=== PATIENT | female | born 1960 | race Hispanic/Latino ===

== ENCOUNTER 2018-10-31 06:54 | Observation (INO) | payer BC, OTHER ==
--- NOTE | 2018-10-31 07:52 | ED PDOC ---
Arrival/HPI - General Chief Complaint: Weakness/Neurological Deficit Historian: Patient - History of Present Illness Narrative History of Present Illness (Text): 10/31/18 07:49 58 year old female, whose past medical history includes hypertension, Hyperlip idemia, hx of TIA 12/18/11, Crohns, DVT after an ankle sx in 2006, presents to the emergency department complaining of right-sided weakness and numbness that began 2-3 days ago. Patient reports she noticed it when she was trying to brush her teeth. Patient reports right-sided facial droop 2 days go and slurred speech yesterday. Patient takes 325mg Aspirin daily, but did not take her daily dose today. Patient denies being on any blood thinners. Patient denies any fever, chills, chest pain, shortness of breath, nausea, vomiting, diarrhea, urinary symptoms, back pain, neck pain, headache, dizziness, or any other complaints. PMD: Dr. Maxwell Time/Duration: Other (2-3 days) Symptom Onset: Gradual Symptom Course: Unchanged Activities at Onset: Light Context: Home Past Medical History - Provider Review Nursing Documentation Reviewed: Yes - Past History Past History: Non-Contributing - Infectious Disease Hx of Infectious Diseases: None - Tetanus Immunization Tetanus Immunization: Unknown - Cardiac Hx Cardiac Disorders: Yes Hx Hypertension: Yes - Pulmonary Hx Chronic Obstructive Pulmonary Disease (COPD): No - Neurological HX Cerebrovascular Accident: No - HEENT Hx HEENT Disorder: No - Renal Hx Renal Disorder: No - Endocrine/Metabolic Hx Endocrine Disorders: No - Hematological/Oncological Hx Blood Disorders: Yes Hx Cancer: No Other/Comment: DVT 2006 POST OP - Integumentary Hx Dermatological Disorder: No - Musculoskeletal/Rheumatological Hx Arthritis: Yes - Gastrointestinal Hx Gastrointestinal Disorders: No Hx Crohn's Disease: Yes Hx Gastroesophageal Reflux: No - Genitourinary/Gynecological Hx Genitourinary Disorders: No - Psychiatric Hx Emotional Abuse: No Hx Physical Abuse: No Hx Substance Use: No - Past Surgical History Past Surgical History: Non-Contributing - Surgical History Other/Comment: EXC PAROTID GLAND MASSLEFT KNEE ACL RECONSTRUCTION 2012RT ANKLE SX 2010 - Anesthesia Hx Anesthesia: Yes Hx Anesthesia Reactions: Yes (NAUSEA) Hx Malignant Hyperthermia: No - Suicidal Assessment Feels Threatened In Home Enviroment: No Family/Social History - Physician Review Nursing Documentation Reviewed: Yes Family/Social History: No Known Family HX Smoking Status: Never Smoked Hx Alcohol Use: No Hx Substance Use: No Hx Substance Use Treatment: No Allergies/Home Meds Allergies/Adverse Reactions: Allergies fexofenadine Allergy (Verified 10/31/18 11:51) ANGIOEDEMA pseudoephedrine Allergy (Verified 10/31/18 11:51) ANGIOEDEMA Tetanus Vaccines and Toxoid Adverse Reaction (Verified 10/31/18 11:51) REDNESS Home Medications: Home Meds Medication Instructions Recorded Confirmed Aspirin 325 mg PO DAILY 10/31/18 10/31/18 Flaxseed Oil [Flaxseed] 1,300 mg PO DAILY 10/31/18 10/31/18 Multivit-Min/FA/Lycopen/Lutein 1 tab PO DAILY 10/31/18 10/31/18 [Adults 50 Plus Multivitamin] Ubidecarenone [Coq10] 50 mg PO DAILY 10/31/18 10/31/18 Review of Systems - Physician Review All systems were reviewed & negative as marked: Yes - Review of Systems Constitutional: absent: Fevers, Other (chills) Respiratory: absent: SOB Cardiovascular: absent: Chest Pain Gastrointestinal: absent: Diarrhea, Nausea, Vomiting Genitourinary Female: absent: Dysuria, Frequency, Hematuria Musculoskeletal: absent: Back Pain, Neck Pain Neurological: Speech Changes (slurred speech yesterday ), Facial Droop (right- sided 2 days ago), Other (right-side weakness and numbness). absent: Headache, Dizziness Physical Exam Vital Signs Reviewed: Yes Vital Signs Temp Pulse Resp BP Pulse Ox 10/31/18 07:01 97.4 F L 95 H 18 160/97 H 94 L Temperature: Afebrile Blood Pressure: Hypertensive Pulse: Regular Respiratory Rate: Normal Appearance: Positive for: Well-Appearing, Non-Toxic, Comfortable Pain Distress: None Mental Status: Positive for: Alert and Oriented X 3 - Systems Exam Head: Present: Atraumatic, Normocephalic Pupils: Present: PERRL Extroacular Muscles: Present: EOMI Conjunctiva: Present: Normal Mouth: Present: Moist Mucous Membranes Neck: Present: Normal Range of Motion Respiratory/Chest: Present: Clear to Auscultation, Good Air Exchange. No: Respiratory Distress, Accessory Muscle Use Cardiovascular: Present: Regular Rate and Rhythm, Normal S1, S2. No: Murmurs Abdomen: No: Tenderness, Distention, Peritoneal Signs Back: Present: Normal Inspection Upper Extremity: Present: Normal Inspection. No: Cyanosis, Edema Lower Extremity: Present: Normal Inspection. No: Edema Neurological: Present: Speech Normal, Other (decrease sensation to the right lower and upper extremities, right arm drift> 10 sec, right-sided facial droop) Skin: Present: Warm, Dry, Normal Color. No: Rashes Psychiatric: Present: Alert, Oriented x 3, Normal Insight, Normal Concentration Medical Decision Making ED Course and Treatment: 10/31/18 07:49 Impression: 58 year old female presents complaining of right-sided weakness that began 2-3 days ago with at times slurred speech and facial droops. Plan: -- CT head and neck bundle -- Head CT -- EKG -- Labs -- Urine Culture -- Chest X-ray -- Urinalysis w/ micro -- Reassess and disposition Prior Visits: Notes and results from previous visits were reviewed. Progress Notes: EKG shows NSR at 95 BPM. Interpreted by me. PROCEDURE: CT Angiography of the neck with contrast Dictator : Ashutosh Lisa MD Report Date : 10/31/2018 09:09:04 IMPRESSION: Unremarkable CT Angiography of the Brain. PROCEDURE: CT HEAD WITHOUT CONTRAST. Dictator : Wendy Dotson MD Report Date : 10/31/2018 08:54:33 IMPRESSION: No acute intracranial abnormality.If there is a persistent focal neurologic deficit and an ongoing clinical concern for acute infarction, an MRI of the brain without intravenous contrast would be a more sensitive modality for evaluation of hyperacute/acute ischemic infarction. Chronic lacunar infarction in the right anterior limb of internal capsule, left basal ganglia, thalamus and genu of internal capsule. Mild chronic microangiopathic changes. Chest X-ray Dictator : Ashutosh Lisa MD Report Date : 10/31/2018 08:58:08 IMPRESSION: No active disease. 10/31/18 09:[address] Maxwell who is aware and agrees with the plan. Accepts patient into her service and request Dr. Wolfe for neuro consult. - Lab Interpretations I have reviewed the lab results: Yes - RAD Interpretation Radiology Orders: 10/31/18 07:17 CTA HEAD & NECK BUNDLE [CT] Stat HEAD W/O CONTRAST [CT] Stat CHEST PORTABLE [RAD] Stat Drink Waiter: Radiologist - EKG Interpretation Interpreted by ED Physician: Yes Type: 12 lead EKG - Scribe Statement The provider has reviewed the documentation as recorded by the Gwen Nation Provider Gwen Attestation: All medical record entries made by the Gwen were at my direction and personally dictated by me. I have reviewed the chart and agree that the record accurately reflects my personal performance of the history, physical exam, medical decision making, and the department course for this patient. I have also personally directed, reviewed, and agree with the discharge instructions and d isposition. Disposition/Present on Arrival - Present on Arrival Any Indicators Present on Arrival: No History of DVT/PE: Yes History of Uncontrolled Diabetes: No Urinary Catheter: No History of Decub. Ulcer: No History Surgical Site Infection Following: None - Disposition Have Diagnosis and Disposition been Completed?: Yes Diagnosis: Weakness Disposition: HOSPITALIZED Disposition Time: 09:15 Condition: GUARDED
[2018-10-31 07:56] LABS: BASO # 0.09 K/mm3 (0.0-2.0); BASO % 0.8 % (0.0-3.0); EOS # 0.5 (0.0-0.7); EOS % 4.7 % (1.5-5.0); HEMOGLOBIN 14.3 g/dL (12.0-16.0); LYMPH # 2.4 (1.2-3.4); LYMPH % 21.5 % (22.0-35.0); MEAN CELL VOLUME 89.6 fl (80.0-105.0); MEAN CORPUSCULAR HEMOGLOBIN 29.7 pg (25.0-35.0); MEAN CORPUSCULAR HGB CONC 33.2 g/dl (31.0-37.0); MEAN PLATELET VOLUME 10.2 fl (7.0-11.0); MONO # 0.6 (0.1-0.6); MONO % 5.6 % (1.0-6.0); RBC 4.81 10^6/uL (3.5-6.1); RED CELL DISTRIBUTION WIDTH 13.3 % (11.5-14.5); WHITE BLOOD COUNT 11.2 10^3/uL (4.5-11.0)
[2018-10-31 08:03] LABS: INR 1.04; PARTIAL THROMBOPLASTIN TIME 31.1 Seconds (26.9-38.3); PROTHROMBIN TIME 11.7 SECONDS (9.4-12.5)
[2018-10-31 08:09] LABS: ALB/GLOB RATIO 1.1 (1.1-1.8); ALBUMIN 4.1 g/dL (3.0-4.8); ALT/SGPT 31 U/L (7-56); AST/SGOT 36 U/L (14-36); BLOOD UREA NITROGEN 23 mg/dL (7-21); CALCIUM 9.4 mg/dL (8.4-10.5); GFR NON-AFRICAN AMERICAN 57
[2018-10-31 08:20] LABS: B-TYPE NATRIURETIC PEPTIDE 33.8 pg/mL (0-450); TROPONIN I < 0.01 ng/mL
[2018-10-31 08:25] LABS: URINE APPEARANCE CLEAR (CLEAR); URINE BILIRUBIN NEGATIVE (NEGATIVE); URINE BLOOD NEGATIVE (NEGATIVE); URINE COLOR YELLOW (YELLOW); URINE GLUCOSE (UA) NEGATIVE (NEGATIVE); URINE LEUKOCYTE ESTERASE TRACE Leu/uL (NEGATIVE); URINE PROTEIN NEGATIVE mg/dL (<30 mg/dL); URINE UROBILINOGEN 0.2 E.U./dL (<1 E.U./dL)
[2018-10-31] MEDS ORDERED: Iohexol 350 MG/100 ML VIAL ONE (08:30)
[2018-10-31 08:57] LABS: URINE RBC 0 - 2 /hpf (0-2)
[2018-10-31 08:58] LABS: URINE BACTERIA MANY /hpf
--- NOTE | 2018-10-31 08:58 | CT ---
Date of service: 10/31/2018 PROCEDURE: CT HEAD WITHOUT CONTRAST. HISTORY: right arm numbness/slurred speech for 2-3 days COMPARISON: None available. TECHNIQUE: Axial computed tomography images were obtained through the head/brain without intravenous contrast. Radiation dose: Total exam DLP = 803.23 mGy-cm. This CT exam was performed using one or more of the following dose reduction techniques: Automated exposure control, adjustment of the mA and/or kV according to patient size, and/or use of iterative reconstruction technique. FINDINGS: HEMORRHAGE: No intracranial hemorrhage. BRAIN: There are mild chronic microangiopathic changes. There are chronic lacunar infarctions in the right anterior limb of internal capsule, left basal ganglia, thalamus and genu internal capsule. There is no mass, mass effect or abnormal extra-axial fluid collection. There is no territorial infarction. The midline sagittal structures are normal. VENTRICLES: The ventricles are normal in size, shape and configuration. CALVARIUM: There is no calvarial fracture or extracranial soft tissue swelling. PARANASAL SINUSES: Predominantly clear. MASTOID AIR CELLS: Predominantly clear. OTHER FINDINGS: None. IMPRESSION: No acute intracranial abnormality.If there is a persistent focal neurologic deficit and an ongoing clinical concern for acute infarction, an MRI of the brain without intravenous contrast would be a more sensitive modality for evaluation of hyperacute/acute ischemic infarction. Chronic lacunar infarction in the right anterior limb of internal capsule, left basal ganglia, thalamus and genu of internal capsule. Mild chronic microangiopathic changes.
--- NOTE | 2018-10-31 09:01 | RAD ---
Date of service: 10/31/2018 HISTORY: r/o infiltrate COMPARISON: 08/02/2012 TECHNIQUE: 1 view obtained. FINDINGS: LUNGS: No active pulmonary disease. PLEURA: No significant pleural effusion identified, no pneumothorax apparent. CARDIOVASCULAR: No aortic atherosclerotic calcification present. Normal cardiac size. No pulmonary vascular congestion. OSSEOUS STRUCTURES: No significant abnormalities. VISUALIZED UPPER ABDOMEN: Normal. OTHER FINDINGS: None. IMPRESSION: No active disease.
--- NOTE | 2018-10-31 09:12 | CT ---
Date of service: 10/31/2018 PROCEDURE: CT Angiography of the neck with contrast HISTORY: right arm numbness/slurred speech for 2-3 days COMPARISON: None. TECHNIQUE: Contiguous axial images of the neck were obtained from the level of the skull-base to the superior mediastinum in the arteriographic phase of enhancement. Coronal and sagittal reformats or also generated. IV contrast dose: Radiation dose: Total exam DLP = 498.76 mGy-cm. This CT exam was performed using one or more of the following dose reduction techniques: Automated exposure control, adjustment of the mA and/or kV according to patient size, and/or use of iterative reconstruction technique. FINDINGS: RIGHT CAROTID ARTERIES: Common Carotid Artery: Normal. Carotid Bifurcation: Normal. Internal Carotid Artery:Normal. External Carotid Artery (proximal branches): Normal. LEFT CAROTID ARTERIES: Common Carotid Artery: Normal. Carotid Bifurcation: Normal. Internal Carotid Artery:Normal. External Carotid Artery (proximal branches): Normal. VERTEBRAL ARTERIES: Right Vertebral Artery: Normal. Left Vertebral Artery: Normal. OTHER FINDINGS: no aortic atherosclerotic calcification or mural plaque present. IMPRESSION: Normal CT Angiography of the neck. CT Angiography of the Brain. HISTORY: right arm numbness/slurred speech for 2-3 days COMPARISON: None available. TECHNIQUE: CT angiography of the intracranial arteries was performed. Coronal and sagittal maximum intensity projection reformated images were generated. Radiation dose: Total exam DLP = 498.76 mGy-cm. This CT exam was performed using one or more of the following dose reduction techniques: Automated exposure control, adjustment of the mA and/or kV according to patient size, and/or use of iterative reconstruction technique. FINDINGS: INTERNAL CEREBRAL ARTERIES: Unremarkable. The skull base, petrous, cavernous and supraclinoid segments are bilaterally widely patent. ANTERIOR CEREBRAL ARTERIES: Unremarkable. A1 and A2 segments are widely patent. Smaller distal branches unremarkable, as visualized. MIDDLE CEREBRAL ARTERIES: Unremarkable. M1 and M2 segments are widely patent. Perisylvian branches grossly symmetric. POSTERIOR CIRCULATION: Basilar Artery: Unremarkable. Distal Vertebral Arteries: Unremarkable. Posterior Cerebral Arteries: Unremarkable. Posterior Inferior Cerebellar Arteries: Unremarkable. ANEURYSM/ VASCULAR MALFORMATIONS: None. OTHER FINDINGS: None. IMPRESSION: Unremarkable CT Angiography of the Brain.
--- NOTE | 2018-10-31 12:28 | CARD ---
APPROVED REPORT Date of service: 10/31/2018 EKG Measurement Heart [id number] <Conclusion> Normal sinus rhythm Normal ECG
[2018-10-31] MEDS ORDERED: Pneumococcal 23-Valent Vaccine IM ONE (13:18)
[2018-10-31] MEDS ORDERED: Influenza Vaccine 60 mcg/0.5 mL SYR (4YR UP) IM ONE (13:18)
[2018-10-31 13:19] VITALS: BMI 33.5
[2018-10-31] MEDS ORDERED: Gadodiamide 287 MG/ML VIAL (15ML) IV ONE (19:05)
--- NOTE | 2018-10-31 22:58 | CON ---
DATE: 10/31/2018 HISTORY OF PRESENT ILLNESS: This is a 58-year-old white female with past medical history of TIA, hypertension, hyperlipidemia, Crohn's disease, DVT and complaint of right-sided weakness that began 2-3 days ago when she was trying to brush her teeth and also reports right facial droop 2 days ago with slurred speech. The patient came to hospital and she has been taking aspirin 325 mg p.o. daily. Denies any other shortness of breath. No neck pain. No back pain. ALLERGIES: FEXOFENADINE, PSEUDOEPHEDRINE AND TETANUS VACCINE. HOME MEDICATIONS: Aspirin and coenzyme Q10. PHYSICAL EXAMINATION: HEENT: Normocephalic and atraumatic. NECK: Supple. NEUROLOGIC: Alert, awake and oriented x3. No aphasia. Cranial nerves II through XII were tested. Pupil reactive. EOM intact. Visual joya full. No fascial asymmetry. Tongue midline. Motor examination; moves all extremities equally. Tone normal. Deep tendon reflexes 1+. Both plantars are downgoing. Sensory appears intact. Cerebellar gait deferred. IMPRESSION AND PLAN: Transient ischemic attack, . CAT scan of the head was negative and for only suggestive chronic lacunar infarct in the right anterior internal capsule and left basal ganglia, thalamus and genu of internal capsule. The work is up progress. Aspirin 325 mg p.o. daily and we will do the MRI of the head without contrast. We will follow up. Santy Wolfe MD
--- NOTE | 2018-10-31 23:51 | HP ---
DATE OF EXAM: 10/31/2018 HISTORY OF PRESENT ILLNESS: Patient is 58-year-old seen in emergency room, bed 4. Patient states for the last 3 days, she has bene having some weakness and right-sided increasing numbness. She states she had right-sided numbness in 12/2011. At that point, she had workup done, which was unremarkable. Even her coagulation workup was done and was unremarkable. However, the patient was started on statin and aspirin, but she dropped the statin because she does not like the side effects of it. She was maintained on aspirin that she still takes. Patient states although she was having numbness for last 3 days, got worse this morning, so she decided to come to emergency room for further evaluation. PAST MEDICAL HISTORY: She has significant past medical history of; 1. Right ankle multiple surgeries. Initially, she had ligamental tear followed by total ankle replacement. 2. History of right leg DVT. 3. History of vitamin D deficiency. ALLERGIES: SHE IS ALLERGIC TO TETANUS TOXOID, PSEUDOEPHEDRINE, AND OSCAR. SOCIAL HISTORY: She is , lives with her . Denies smoking, drinking or alcohol use. MEDICATIONS AT HOME: She is on aspirin 81 daily. PHYSICAL EXAMINATION GENERAL: She is awake and alert, able to communicate. VITAL SIGNS: She is afebrile. Pulse 73, respirations 18, blood pressure 155/91. LUNGS: Bilateral fair airflow. No rhonchi or crackles. HEART: S1 and S2, audible. ABDOMEN: Soft and nontender. No rebound. No guarding. NEUROLOGIC: Patient is awake and alert, able to communicate. Bilateral motor strength is equal; however, she has subjective feeling of tingling in her right side of her face. LABORATORY DATA: Her CT scan of the head is unremarkable. Neck CTA is also unremarkable. is unremarkable. EKG shows no sinus rhythm. ASSESSMENT 1. Right-sided numbness, etiology unclear. Neurologic workup so far is negative. 2. Questionable anxiety disorder. 3. History of multiple surgeries on right ankle. PLAN: Patient will be placed on observation. I will order for MRI of the brain and also will get a carotid Doppler study done. We will start her on statin. Continue her on aspirin. We will follow up with this patient in a.m. Hiwot Maxwell MD [facility] # [id number]
[2018-11-01 00:45] VITALS: O2SAT 98
[2018-11-01 06:18] VITALS: RESP 20
--- NOTE | 2018-11-01 09:02 | US ---
PROCEDURE: Lateral carotid artery duplex ultrasound HISTORY: Carotid stenosis PHYSICIAN(S): Torey Magaña MD. TECHNIQUE: Duplex sonography and color-flow Doppler were used to evaluate the carotid bifurcations and limited segments of the vertebral arteries bilaterally. FINDINGS: There is mild smooth hypoechoic plaque noted at the carotid bifurcations bilaterally. The peak systolic velocity in the proximal right internal carotid artery is 50 cm/sec. This corresponds to a 20 to 39% proximal right ICA stenosis. Normal systolic velocities are noted in the proximal right external carotid artery. There is antegrade flow in the right vertebral artery. The peak systolic velocity in the proximal left internal carotid artery is 50 cm/sec. This corresponds to a 20 to 39% proximal left ICA stenosis. Normal systolic velocities are noted in the proximal left external carotid artery. There is antegrade flow in the left vertebral artery. IMPRESSION: 1. Bilateral 20-39% proximal ICA stenoses. 2. Antegrade flow in both vertebral arteries.
--- NOTE | 2018-11-01 10:35 | CP.PCM.PCO ---
Assessment & Plan (1) Weakness Status: Acute - Assessment and Plan (Free Text) Assessment: NEURO COMMUNICATION NOTE: RIGHT SIDE WEAKNESS SEC TO SMALL LEFT MCA LACUNAR INFARCT SEC TO ATHEROSCLEROTIC DISEASE. ASA 81 MG AND LIPITOR 40 MG PO DAILY. PT EVAL PATIENT REFUSED HIGH DOSE STATINS. THANKS LIZZ VYAS. Plan: c/w asa and lipitor bp control. - Functional Status Prior to Admission: right side weakness Current Status: good Impairment Code: right side weakness
[2018-11-01 11:29] LABS: HDL CHOLESTEROL 47 mg/dL (29-60)
--- NOTE | 2018-11-01 11:34 | MRI ---
Date of service: 10/31/2018 PROCEDURE: MRI BRAIN WITHOUT CONTRAST HISTORY: rt sided weakness COMPARISON: None available. TECHNIQUE: Multiplanar, multisequence MR images of the brain were obtained without intravenous contrast enhancement. 15 cc of Omniscan FINDINGS: HEMORRHAGE: None DWI: There is an acute infarct in the left freitas radiata measuring 12 mm in diameter. This is superimposed on severe chronic microvascular changes in the periventricular white matter and basal ganglia. BRAIN PARENCHYMA: No mass effect or edema. No atrophy or chronic microvascular ischemic changes. VENTRICLES: Unremarkable. No hydrocephalus. CRANIUM: Unremarkable. ORBITS: Grossly unremarkable. PARANASAL SINUSES/MASTOIDS: Clear VASCULAR SYSTEM: Skull base flow voids intact. OTHER FINDINGS: The report concurs with the preliminary [facility] report IMPRESSION: There is an acute infarct in the left freitas radiata measuring 12 mm in diameter. This is superimposed on severe chronic microvascular changes in the periventricular white matter and basal ganglia.
[2018-11-01 11:40] LABS: LDL CHOLESTEROL 154 mg/dL (0-129)
--- NOTE | 2018-11-01 14:59 | CON ---
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 MRI of the head done, which showed left freitas radiata lacunar infarct. PHYSICAL EXAMINATION HEENT: Normocephalic, atraumatic. NECK: Supple. NEUROLOGIC: Awake, alert, oriented x3. No aphasia. Cranial nerves II through XII were tested. Pupils reactive. Spontaneous movement of the extremities noted. Deep tendon reflexes normal, mild residual weakness of the right side. IMPRESSION AND PLAN: Left hemispheric stroke, lacunar. Continue aspirin 325, physical therapy. We will follow up. Santy Wolfe MD
[2018-11-01 18:33] VITALS: BP 125/83; PULSE 70; TEMP 98.1
--- NOTE | 2018-11-01 20:06 | CARD ---
APPROVED REPORT Date of service: 11/01/2018 EXAM: Two-dimensional and M-mode echocardiogram with Doppler and color Doppler. INDICATION CVA/TIA 2D DIMENSIONS Left Atrium (2D)3.9 (1.6-4.0cm)IVSd1.0 (0.7-1.1cm) LVDd4.3 (3.9-5.9cm)PWd1.0 (0.7-1.1cm) LVDs3.0 (2.5-4.0cm)FS (%) 31.1 % LVEF (%)59.1 (>50%) M-Mode DIMENSIONS Aortic Root2.90 (2.2-3.7cm)Aortic Cusp Exc.1.40 (1.5-2.0cm) Aortic Valve AoV Peak Pktjxpta436.0cm/Kaden Peak GR.13mmHg Mitral Valve MV E Cuvwawyz45.5cm/sMV A Bfjbwfrg10.3cm/sE/A ratio0.8 TDI Lateral E' Peak V10.80cm/sMedial E' Peak V5.26cm/sE/Lateral E'6.8 E/Medial E'14.0 Pulmonary Valve PV Peak Dlgzzqzl94.1cm/sPV Peak Grad.2mmHg Tricuspid Valve TR Peak Drkanjgt521bg/sRAP [id number] Peak Gr.7mmHg [id number] LEFT VENTRICLE The left ventricle is normal size. There is normal left ventricular wall thickness. The left ventricular function is normal.Ef-55-60% There is normal LV segmental wall motion. Transmitral Doppler flow pattern is Grade III-reversible restrictive diastolic dysfunction. No left ventricle thrombus noted on this study. There is no ventricular septal defect visualized. There is no left ventricular aneurysm. There is no mass noted in the left ventricle. RIGHT VENTRICLE The right ventricle is normal size. There is normal right ventricular wall thickness. The right ventricular systolic function is normal. ATRIA The left atrium size is normal. The right atrium size is normal. The interatrial septum is intact with no evidence for an atrial septal defect. AORTIC VALVE The aortic valve is thickened but opens well. No aortic regurgitation is present. There is no aortic valvular stenosis. There is no aortic valvular vegetation. MITRAL VALVE The mitral valve is thickened but opens well. Mitral annular calcification is mild to moderate. Mitral regurgitation is trace. There is no mitral valve stenosis. There is no evidence of mitral valve prolapse. TRICUSPID VALVE The tricuspid valve leaflets are thickened , but open well. There is trace tricuspid regurgitation.RVSP-17 mmof Hg. There is no tricuspid valve stenosis. There is no tricuspid valve prolapse or vegetation. PULMONIC VALVE The pulmonary valve is normal in structure. There is no pulmonic valvular regurgitation. There is no pulmonic valvular stenosis. GREAT VESSELS The aortic root is normal in size. The ascending aorta is normal in size. The pulmonary artery is normal. The IVC is normal in size and collapses >50% with inspiration. PERICARDIAL EFFUSION There is no pleural effusion. There is no pericardial effusion. <Conclusion> Normal chamber sIze.Ef-55-60% Mitral regurgitation is trace. There is trace tricuspid regurgitation.RVSP-17 mmof Hg. The IVC is normal in size and collapses >50% with inspiration. There is no pericardial effusion. No vegetation or thrombus noted.
--- NOTE | 2018-11-02 00:37 | DS ---
HOSPITAL COURSE: The patient is 58 years old, seen and examined, doing very well. She came in with right-sided numbness in her right upper and lower extremity and some difficulty walking and speaking. No significant weakness, but has feeling of upper extremity feeling . PHYSICAL EXAMINATION: VITAL SIGNS: She is afebrile, pulse is 66, respirations 20, and blood pressure 114/71. LUNGS: Bilateral fair airflow. No rhonchi or crackle. HEART: S1 and S2 audible. ABDOMEN: Soft and nontender. No rebound. No guarding. NEUROLOGIC: The patient is awake and alert, able to communicate. LABORATORY DATA: Her triglycerides 216, cholesterol 244, LDL is 154, HDL is 47. She had carotid Doppler done, unremarkable; however, MRI shows acute infarct in left freitas radiata measuring 12 mm in diameter, this is superimposed on severe chronic vascular changes in periventricular white matter and basal ganglia. ASSESSMENT: Left middle cerebral artery lacunar infarct secondary to atherosclerotic disease. DISCHARGE PLAN: The patient was offered to consider rehab, but she wants to rather go home. She states she will get physical therapy as outpatient. She will be discharged home on aspirin 81 mg daily, Lipitor 40 mg daily, and the patient will be discharged after she had echocardiogram done today. We will follow up the patient as an outpatient. Hiwot Maxwell MD
== END 2018-11-01 21:32 | disposition home or self-care (01) ==
LOC: ED 06:54 → ERH 09:41 → 2RNO 11:58
PROVIDERS: ADMIT Internal Medicine; ATTEND Internal Medicine
DX: I63.81 Other cerebral infarction due to occlusion or stenosis of small artery (principal); G81.91 Hemiplegia, unspecified affecting right dominant side; R29.810 Facial weakness; I10 Essential (primary) hypertension; E78.5 Hyperlipidemia, unspecified; K50.90 Crohn's disease, unspecified, without complications; Z86.73 Personal history of transient ischemic attack (TIA), and cerebral infarction without residual deficits; Z86.718 Personal history of other venous thrombosis and embolism
CPT/HCPCS: 36415; 70450; 70496; 70498; 70553; 71045; 80053; 80061; 81001; 82550; 82553; 83615; 83735; 83880; 84484; 85025; 85610; 85730; 87086; 93005; 93306; 93880; 97116; 97161; 99285; A9579; G0378; G8978; G8979; G8980; Q9967